=== PATIENT | male | born 1955 | race Caucasian/White ===

== ENCOUNTER 2016-12-21 06:26 | Inpatient (IN) | payer BC ==
--- NOTE | 2016-11-16 11:26 | PAT Medication Instructions ---
Service Date Nov 16, 2016. Current Home Medication List Aspirin (Aspirin Ec), 81 MG PO QAM Oxycodone/Acetaminophen 5MG/325MG (Percocet 5MG/325MG), 1 TABLET PO TID PRN for RN Simvastatin (Zocor), 80 MG PO QAM [Lisinopril Hctz], 1 TAB PO QAM Medication Instructions For Your Scheduled Surgery - Hold the following medications the morning of surgery: [Lisinopril Hctz], 1 TAB PO QAM - Take the following medications the morning of surgery with a sip of water OTHERWISE NOTHING TO EAT OR DRINK AFTER MIDNIGHT: Simvastatin (Zocor), 80 MG PO QAM Aspirin (Aspirin Ec), 81 MG PO QAM Oxycodone/Acetaminophen 5MG/325MG (Percocet 5MG/325MG), 1 TABLET PO TID PRN ( may take if needed up to 4 hours prior to surgery) If you have any questions please call us at [phone] or [phone] or [phone]
--- NOTE | 2016-11-16 11:57 | DIAGNOSTIC IMAGING REPORT ---
CHEST PREADMISSION(PA/LAT) CLINICAL HISTORY: 61 years-old Male presenting with preadmission chest x-ray. TECHNIQUE: PA and lateral views of the chest were obtained. COMPARISON: None. FINDINGS: Cardiomediastinal silhouette normal. Lungs and pleural spaces clear. Multiple old left lateral rib fractures. Upper abdomen normal. IMPRESSION: 1. No acute cardiopulmonary disease. Electronically signed by: Shailesh Cosme M.D. 11/16/2016 11:56 AM Dictated Date/Time: 11/16/2016 11:55 AM
[2016-11-16 12:00] LABS: URINE APPEARANCE CLEAR (CLEAR); URINE BILIRUBIN NEG (NEG); URINE COLOR YELLOW; URINE EPITHELIAL CELL AUTO 0-5 /lpf (0-5); URINE NITRITE NEG (NEG); URINE SPECIFIC GRAVITY 1.019 (1.000-1.030); UROBILINOGEN NEG (NEG)
[2016-11-16 12:13] LABS: INR 0.9 (0.9-1.1); PARTIAL THROMBOPLASTIN RATIO 0.9
[2016-11-16 12:15] LABS: BASO % 0.3 %; BASO ABS # 0.02 K/uL (0-0.2); COMPLETE YES; HEMATOCRIT 44.3 % (42-52); IG% 0.2 %; LYMPH % 32.1 %; LYMPH ABS # 1.89 K/uL (1.2-3.4); MEAN CELL VOLUME 95.3 fL (80-100); MEAN CORPUSCULAR HEMOGLOBIN 31.4 pg (25-34); MEAN PLATELET VOLUME 9.5 fL (7.4-10.4); MONO % 8.1 %; NEUT % 57.3 %; PLATELET COUNT 231 K/uL (130-400); RED BLOOD COUNT 4.65 M/uL (4.7-6.1); WHITE BLOOD COUNT 5.89 K/uL (4.8-10.8)
[2016-11-16 12:18] LABS: MANUAL MICROSCOPIC REQUIRED? NO; REVIEW REQ? NO
[2016-11-16 12:28] LABS: ESTIMATED AVERAGE GLUCOSE 126 mg/dl; HA1C FLAG Normal (Normal)
--- NOTE | 2016-12-20 10:05 | HISTORY & PHYSICAL EXAMINATION ---
DATE OF ADMISSION: 12/21/2016 CHIEF COMPLAINT: Right hip pain. HISTORY OF PRESENT ILLNESS: The patient is a 61-year-old gentleman with known progressive osteoarthritis about his right hip. He is having progressive pain and disability due to ongoing disease. He has pain with prolonged weightbearing and standing activities. He has difficulty with any kneeling, bending, or squatting activities. Due to ongoing pain and disability, he now desires to proceed with right total hip arthroplasty. PAST MEDICAL HISTORY: Hypertension, hypercholesterolemia, and diverticulitis. PAST SURGICAL HISTORY: None. MEDICATIONS: Lisinopril/hydrochlorothiazide 10/12.5 one tablet daily, Zocor 80 mg daily, aspirin 81 mg daily, and Percocet p.r.n. pain. ALLERGIES: No known drug allergies. SOCIAL HISTORY: He uses smokeless tobacco and drinks a few beers a week. REVIEW OF SYSTEMS: Noncontributory. PHYSICAL EXAMINATION: GENERAL: Well-nourished and well-developed elderly male, who appears his stated age. HEENT: Normocephalic and atraumatic. Extraocular movements intact. Oropharynx pink and moist. NECK: Supple without adenopathy. LUNGS: Clear to auscultation bilaterally. HEART: Regular rate and rhythm. ABDOMEN: Soft, nontender, and nondistended. EXTREMITIES: The upper extremities are within normal limits. The right hip demonstrates limited active and passive range of motion. There is severe limitation of internal and external rotation. X-RAYS: X-rays were reviewed. He has severe osteoarthritis about the right hip with complete loss of the joint space. There is deformation of the femoral head. There are large cystic changes about the femoral head and acetabulum. ASSESSMENT: Right hip degenerative joint disease. PLAN: Risks versus benefits were discussed. Consent was obtained. The patient's primary care physician is Dr. Mercedes Plascencia. We will proceed with right total hip arthroplasty upon preoperative workup and medical clearance.
[~2016-12-21] VITALS: Ht 172.7 cm; Wt 91.4 kg
[2016-12-21] VITALS (9 sets, daily range): BP systolic 108–156; BP diastolic 67–92; PULSE 70–85; TEMP 36.4–36.9; O2SAT 95–100; Ht 172.7 cm; Wt 91.4 kg
[2016-12-21] MEDS: CEFAZOLIN 2000 MG/60 ML D5W 60 ML IV SCH ×2 (06:00→07:12)
[~2016-12-21 06:26] MED LIST: ACETAMINOPHEN 500 MG TAB PO SCH; ASPI81TA28 PO; DEXAMETHASONE 4 MG TAB PO SCH; FAMOTIDINE 20 MG TAB PO SCH; GABAPENTIN 300 MG CAP PO SCH; LACTATED RINGER'S 1000ML 1,000 ML IV SCH; LACTATED RINGER'S 1000ML 500 ML IV ONE; LISINOPRIL HCTZ PO; METOCLOPRAMIDE HCL 10 MG TAB PO SCH; OXYC-57 PO; SIMV80TA2 PO
[2016-12-21] MEDS: TRANEXAMIC ACID INJ 1,000 MG in SODIUM CHLORIDE 0.9% 100ML 100 ML IV SCH ×2 (06:30→08:47)
[2016-12-21] MEDS ORDERED: BUPIVACAINE 0.5 % 5 MG/1 ML PF 10ML VIAL ONE (06:34)
--- NOTE | 2016-12-21 06:53 | History & Physical Bridge Note ---
H&P Re-Evaluation Bridge Note: I have examined the patient, reviewed the History & Physical and in the interval since the performance of the History & Physical I have noted the following changes of clinical significance: No changes noted
[2016-12-21] MEDS: CeleBREX 200 MG CAP PO SCH ×2 (07:12→07:17)
[2016-12-21] MEDS ORDERED: MIDAZOLAM HCL 1 MG/ML 2ML VIAL ONE ×2 (08:04→08:10)
[2016-12-21] MEDS ORDERED: FENTANYL CITRATE INJ 50 MCG/1 ML 2 ML VIAL ONE (08:09)
[2016-12-21] MEDS ORDERED: POVIDONE-IODINE OP SOLN 30 ML BTL ONE (08:44)
[2016-12-21] MEDS ORDERED: BACITRACIN 50000 UNIT VIAL ONE (08:44)
[2016-12-21] MEDS ORDERED: ORTHO JOINT ANESTHETIC ONE (09:26)
[2016-12-21] MEDS ORDERED: PROPOFOL IV EMULSION 10 MG/ML 20 ML VIAL IV ONE (10:00)
[2016-12-21] MEDS ORDERED: ROPIVACAINE 5MG/ML 30 ML 150 MG, BUPIVACAINE/EPINEPHR 0.5% MPF 30 ML, KETOROLAC TROMETH... INFIL SCH ×7 (10:00)
[2016-12-21] MEDS ORDERED: LIDOCAINE HCL 2% 2 ML VIAL (20MG/ML) ONE (10:00)
[2016-12-21] MEDS ORDERED: EpHEDrine SULFATE 50MG/5ML SYR ONE (10:14)
--- NOTE | 2016-12-21 10:24 | [facility] Post Operative Brief Note ---
Immediate Operative Summary Operative Date Dec 21, 2016. Pre-Operative Diagnosis Right hip degenerative joint disease Post-Operative Diagnosis Right hip degenerative joint disease Procedure(s) Performed Right total hip arthroplasty Surgeon Dr. Santa Commercial Maintenance Technician Surgeon(s) Jason Mak PA-C Estimated Blood Loss 100cc Findings Severe OA with acetabular cysts Specimens A. Right femoral head Complication(s) None Disposition Recovery Room / PACU
[2016-12-21] MEDS ORDERED: BISACODYL 10 MG SUPP PR PRN (10:30)
[2016-12-21] MEDS ORDERED: MoRPHine SULFATE 2 MG/ML CARP IV PRN (10:30)
[2016-12-21] MEDS ORDERED: SOD PHOSPHATE/SOD BIPHOSPHATE ENEMA 132 ML BTL PR PRN (10:30)
[2016-12-21] MEDS ORDERED: ZOLPIDEM TARTRATE 5 MG TAB PO PRN (10:30)
[2016-12-21] MEDS ORDERED: MAGNESIUM HYDROXIDE SUSP 30 ML UDC PO PRN (10:30)
[2016-12-21] MEDS ORDERED: TAMSULOSIN HCL 0.4 MG CAP PO PRN (10:30)
[2016-12-21] MEDS ORDERED: METOCLOPRAMIDE HCL INJ 5 MG/ML 2 ML VIAL IV PRN (10:30)
[2016-12-21] MEDS ORDERED: ALUMINUM/MAGNESIUM/SIMETH (MAALOX MAX) 30 ML UDC PO PRN (10:30)
[2016-12-21] MEDS ORDERED: ONDANSETRON INJ 2 MG/ML 2 ML VIAL IV PRN ×2 (10:30→11:30)
--- NOTE | 2016-12-21 10:47 | OPERATIVE REPORT ---
DATE OF OPERATION: 12/21/2016 PREOPERATIVE DIAGNOSIS: Osteoarthritis, right hip. POSTOPERATIVE DIAGNOSIS: Osteoarthritis, right hip. PROCEDURE: Right connective total hip arthroplasty. SURGEON: Dr. Santa. BREAKFAST AND ROOM ATTENDANT: Jason Mak PA-C. ANESTHESIA: Spinal. COMPLICATIONS: None. IMPLANT USED: Acetabular reamer used 52, acetabular shell 52, stem #4 and head -5 x 36 mm ceramic. PROCEDURE: Following induction of adequate spinal anesthesia, the patient was placed in left lateral decubitus position and right Jennifer-Langenbeck incision was made. Subcutaneous tissue was sharply dissected. Electrocautery used for hemostasis. The fascia was incised throughout the length of the wound and a weinstein scissor placed beneath the short external rotators. The pyriformis was tagged with #1 Vicryl. The short external rotators were divided from the posterior aspect of the femur using electrocautery. These were swept posteriorly. A T-capsulotomy incision was made and the hip was dislocated using a combination of flexion, adduction, and internal rotation. Exposure of the femoral neck with old-style Hohmann and a blunt Hohmann was carried out and a femoral rasp was utilized as a guide for making the appropriate level femoral neck cut. This bone fragment was removed and reserved on the back table. Next, attention was turned to the acetabulum where bone hook was used to retract the femur while the offset retractors were placed anterior and posteriorly. A double-angled Hohmann was placed in superior and anterior position exposing the acetabulum nicely. Acetabular labrum as well as posterior capsule elements were removed using a long knife and a long pickup. Fovea centralis was cleared of all soft tissue. Sequential reamings were carried up to a 52 and decision was made to proceed with impaction of a 52 trabecular metal cup. This was impacted and held using a single 35 mm bone screw. The acetabular liner was placed with 15 of elevated posterior wall in the superior and posterior position. Next, attention was turned to the femoral portion of the case where a Bovie and pickup was used to further clear short external rotators from their insertion on the femur. Box osteotome was used to gain access to the femoral canal and the T-handled rasp and a rattail rasp were used to further open and lateral the canal. Sequentially raspings were carried up to a 4 which gave good fit and fill of the proximal femur. A trial reduction was carried out and std offset femoral neck component was chosen as the size to be used. A -5 x 36 mm femoral head was impacted into position, +0 head was utilized. The trial reduction was stable in all degrees of rotation with no [id number] impingement. The hip was dislocated. The trial components were removed and the final femoral stem, neck, and femoral head combination were assembled on the back table and impacted into position. Hip was relocated. Range of motion checked once again successful and the wound was irrigated. The pyriformis repaired to the greater trochanter using #1 Vicryl [id number] suture. A Hemovac drain was placed and the fascia was closed using #1 Vicryl, subcutaneous tissue was closed using 0 Dexon, and skin was closed with jabari. Sterile dressing of Adaptic, 4 x 4's, ABDs, and foam tape was applied. The patient tolerated the procedure well. Due to the complex nature of the procedure, the entire surgery was performed with the operational assistance of Jason Mak PA-C. The office manager executive assistant, under direct supervision, was involved in the actual performance of all aspects of the surgical procedure including hemostasis, tissue retraction and incision, instrument management, patient positioning, and wound closure. ADDENDUM There were cysts noted in the subchondral bone and weightbearing dome of the acetabulum. These were curetted free of soft tissue and packed with bone graft from the last reamings. I attest to the content of the Intraoperative Record and any orders documented therein. Any exceptions are noted below. JACOBO
--- NOTE | 2016-12-21 11:27 | DIAGNOSTIC IMAGING REPORT ---
AP PELVIS AND RIGHT HIP 2 VIEWS CLINICAL HISTORY: Postop study COMPARISON STUDY: No previous studies for comparison. FINDINGS: There are postsurgical changes of a total right hip arthroplasty. The acetabular and femoral components appear well seated. There is no dislocation. There are no acute fractures. There are overlying surgical drains. On the left, there is calcification located superior to the greater trochanter and inferolateral to the acetabulum. IMPRESSION: Postsurgical changes of a total right hip arthroplasty. Electronically signed by: Augustin Sandoval M.D. 12/21/2016 11:26 AM Dictated Date/Time: 12/21/2016 11:25 AM
--- NOTE | 2016-12-21 11:29 | Anesthesiology Progress Note ---
Anesthesia Post Op Note Date & Time Dec 21, 2016 at 11:29 Vital Signs Pain Intensity: 0 Vital Signs Past 12 Hours Date Time Temp Pulse Resp B/P (MAP) Pulse Ox O2 Delivery O2 Flow Rate FiO2 12/21/16 11:20 88 20 109/72 99 Oxymask 5 12/21/16 11:10 90 20 116/84 98 Oxymask 5 12/21/16 11:00 36.0 82 20 116/74 98 Oxymask 10 12/21/16 06:55 36.9 81 20 136/92 97 Room Air Notes Mental Status: alert / awake / arousable, participated in evaluation Pt Amnestic to Procedure: Yes Nausea / Vomiting: adequately controlled Pain: adequately controlled Airway Patency, RR, SpO2: stable & adequate BP & HR: stable & adequate Hydration State: stable & adequate Anesthetic Complications: no major complications apparent
[2016-12-21] MEDS ORDERED: ATROPINE SULFATE 0.1 MG/ML 5ML SYR IV PRN (11:30)
[2016-12-21] MEDS ORDERED: HYDROmorphone INJ 2 MG/ML SYR/VIAL IV PRN (11:30)
[2016-12-21] MEDS ORDERED: PHENYLEPHRINE 100MCG/ML 5ML SYR IV PRN (11:30)
[2016-12-21] MEDS ORDERED: EpHEDrine SULFATE INJ 50 MG/ML AMP IV PRN (11:30)
[2016-12-21] MEDS: D5W AND 1/2NSS + 20MEQ KCL 1,000 ML IV SCH ×2 (12:49→21:48)
[2016-12-21] MEDS: FERROUS GLUCONATE 324 MG TAB PO SCH ×2 (12:50→17:42)
[2016-12-21] MEDS: OXYCODONE HCL IR 5 MG TAB (IMMEDIATE RELEASE) PO PRN ×3 (12:56→18:57)
[2016-12-21] MEDS: KETOROLAC TROMETHAMINE 30 MG/ML VIAL IV. SCH ×2 (15:36→21:47)
[2016-12-21] MEDS ORDERED: TRANEXAMIC ACID INJ 1,000 MG in SODIUM CHLORIDE 0.9% 100ML 100 ML IV ONE (16:00)
[2016-12-21] MEDS: ACETAMINOPHEN IV 1,000 MG in EMPTY BAG 0 ML IV SCH (18:34)
[2016-12-21] MEDS: CEFAZOLIN IV 1,000 MG in DEXTROSE 5% 50ML 50 ML IV SCH (18:57)
[2016-12-21] MEDS: ASPIRIN 81 MG ECTAB PO SCH (20:55)
[2016-12-21] MEDS: DOCUSATE SODIUM 100 MG CAP PO SCH (20:56)
[2016-12-21] MEDS ORDERED: SENNA 8.6 MG TAB PO SCH (21:00)
[2016-12-21] MEDS ORDERED: CeleBREX 200 MG CAP PO SCH (21:00)
[2016-12-22] MEDS: CEFAZOLIN IV 1,000 MG in DEXTROSE 5% 50ML 50 ML IV SCH (02:03)
[2016-12-22] MEDS: ACETAMINOPHEN IV 1,000 MG in EMPTY BAG 0 ML IV SCH ×2 (02:43→10:25)
[2016-12-22] MEDS: KETOROLAC TROMETHAMINE 30 MG/ML VIAL IV. SCH ×2 (03:37→10:25)
[2016-12-22 03:53] VITALS: BP 104/65; PULSE 63; TEMP 36.6; O2SAT 93
[2016-12-22 05:50] LABS: BASO % 0.1 %; BASO ABS # 0.01 K/uL (0-0.2); COMPLETE YES; EOS % 0.2 %; HEMATOCRIT 33.1 % (42-52); IG% 0.4 %; LYMPH % 11.8 %; LYMPH ABS # 1.43 K/uL (1.2-3.4); MEAN CELL VOLUME 94.6 fL (80-100); MEAN CORPUSCULAR HEMOGLOBIN 32.6 pg (25-34); MEAN CORPUSCULAR HGB CONC 34.4 g/dl (32-36); MEAN PLATELET VOLUME 9.8 fL (7.4-10.4); MONO % 11.9 %; NEUT % 75.6 %; PLATELET COUNT 172 K/uL (130-400); WHITE BLOOD COUNT 12.14 K/uL (4.8-10.8)
[2016-12-22 06:53] VITALS: BP 117/72; PULSE 67; TEMP 36.6; O2SAT 96
[2016-12-22] MEDS: D5W AND 1/2NSS + 20MEQ KCL 1,000 ML IV SCH (07:21)
[2016-12-22] MEDS: OXYCODONE HCL IR 5 MG TAB (IMMEDIATE RELEASE) PO PRN ×4 (07:28→15:37)
--- NOTE | 2016-12-22 07:41 | Orthopedic Progress Note ---
Orthopedic Progress Note Date of Service Dec 22, 2016. Subjective Post OP Day: 1 Reports: feeling well Objective calves soft nontender, N/V intact, dressing C/D/I (Hemovac d/c'd), toes mobile Date Time Temp Pulse Resp B/P (MAP) Pulse Ox O2 Delivery O2 Flow Rate FiO2 12/22/16 06:53 36.6 67 16 117/72 (87) 96 Room Air 12/22/16 03:53 36.6 63 16 104/65 (78) 93 Room Air 12/21/16 23:45 Room Air 12/21/16 23:10 36.7 70 16 122/70 (87) 98 Room Air 12/21/16 19:14 36.9 85 18 108/67 (81) 96 Room Air 12/21/16 17:32 98 Room Air 12/21/16 15:30 Nasal Cannula 2.0 12/21/16 15:12 36.7 80 17 147/82 (103) 98 Nasal Cannula 3.0 12/21/16 14:00 80 19 156/83 (107) 95 Nasal Cannula 3.0 12/21/16 13:03 77 17 131/78 (95) 98 Nasal Cannula 3.0 12/21/16 12:31 36.4 82 18 137/83 (101) 100 Nasal Cannula 2.0 12/21/16 12:00 36.9 76 16 116/70 (85) 98 Nasal Cannula 3.0 12/21/16 12:00 98 Nasal Cannula 3.0 12/21/16 12:00 98 Nasal Cannula 3.0 12/21/16 11:50 75 20 113/87 98 Nasal Cannula 2 12/21/16 11:40 36.2 74 20 101/78 98 Nasal Cannula 2 12/21/16 11:30 74 20 119/73 98 Nasal Cannula 2 12/21/16 11:20 88 20 109/72 99 Oxymask 5 12/21/16 11:10 90 20 116/84 98 Oxymask 5 12/21/16 11:00 36.0 82 20 116/74 98 Oxymask 10 Laboratory Results 24 Hours: Test 12/22/16 05:15 White Blood Count 12.14 K/uL Red Blood Count 3.50 M/uL Hemoglobin 11.4 g/dL Hematocrit 33.1 % Mean Corpuscular Volume 94.6 fL Mean Corpuscular Hemoglobin 32.6 pg Mean Corpuscular Hemoglobin Concent 34.4 g/dl Platelet Count 172 K/uL Mean Platelet Volume 9.8 fL Neutrophils (%) (Auto) 75.6 % Lymphocytes (%) (Auto) 11.8 % Monocytes (%) (Auto) 11.9 % Eosinophils (%) (Auto) 0.2 % Basophils (%) (Auto) 0.1 % Neutrophils # (Auto) 9.18 K/uL Lymphocytes # (Auto) 1.43 K/uL Monocytes # (Auto) 1.45 K/uL Eosinophils # (Auto) 0.02 K/uL Basophils # (Auto) 0.01 K/uL Assessment & Plan Assessment: 61 yo male stable POD #1 s/p right KASANDRA Plan: 1. Med management 2. DVT prophylaxis- ASA, SCDs 3. PT/OT 4. D/C planning- home w/ HH
[2016-12-22] MEDS ORDERED: CLB200 PO (07:45)
[2016-12-22] MEDS ORDERED: ACET-24 PO (07:45)
[2016-12-22] MEDS ORDERED: RXC5 PO (07:45)
[2016-12-22] MEDS ORDERED: ASPEC81 PO (07:45)
--- NOTE | 2016-12-22 07:47 | Discharge Instructions ---
Discharge Instructions Date of Service Dec 22, 2016. Admission Reason for Admission: Right Hip Osteoarthritis Discharge Discharge Diagnosis / Problem: Right hip arthritis Discharge Goals Goal(s): Decrease discomfort, Improve function Activity Recommendations Activity Limitations: as noted below Weightbearing Status: Right weightbearing (as tolerated) . Instructions / Follow-Up Instructions / Follow-Up ACTIVITY RECOMMENDATIONS: SELF CARE INSTRUCTIONS AFTER TOTAL HIP REPLACEMENT Until the incision and soft tissues around your hip have healed, there is a possibility that the hip prosthesis could dislocate. A. Observe the following precautions to prevent dislocation: 1. Don't bend your hip greater than 90 degrees. 2. Avoid crossing your legs or ankles while standing or lying. 3. Sit with your feet placed 6 inches apart. 4. When sitting, keep your knees below your hips. Sit on a firm surface, avoid deep, soft chairs and couches. Use an elevated toilet seat in the bathroom. 5. Don't bend over at the waist. Use a long handled shoehorn and a sock aid to help you put on your shoes and socks. A stationary engineer can help you pickler helper objects that are too high or too low to reach. 6. Keep car riding to a minimum for at least one month after surgery. B. Your balance may be shaky for a while. Use crutches or a walker until directed by your doctor. C. Use hand rails when walking on stairs. D. Wear low heeled shoes with non-slip soles. E. Be sure that your floors are free of things that could trip you - throw rugs , electrical cords, small objects. Avoid wet and waxed floors, especially with crutches and canes. F. Try to walk several times a day with rest periods between. G. Continue with all the exercises taught to you in the hospital. Again, make walking a part of your daily routine. SPECIAL CARE INSTRUCTIONS: VERY IMPORTANT TO READ AND REVIEW A. You may still be at risk for phlebitis and blood clots. 1. Wear surgical stockings (BECKY hose) for 2 weeks after surgery to improve circulation and reduce swelling. 2. Take Aspirin 81mg twice daily for 4 weeks or as directed by your doctor. This is your blood thinner. 3. High risk patients may be prescribed a stronger blood thinner if necessary. 4. If you are on Coumadin normally, your family doctor/relationship management lead should monitor your blood work. Expect a phone call the day of or the day after bloodwork is drawn to adjust your dosage. B. You must take antibiotics before having dental work, bladder, bowel and other surgery. Your doctor will provide you with a permanent card to carry describing precautions. C. Call [facility] if you have a fever, redness or swelling around the incision, cloudy drainage from incision, or sudden increase in pain in your hip, not relieved by your regular pain medication. D. Please call the office at if you have any concerns or questions about your operation or recovery. * YOU MAY SHOWER, NO TUB BATHS UNTIL CLEARED BY YOUR DOCTOR. * WEAR BECKY HOSE 20 HOURS PER DAY FOR 2 WEEKS. * YOU SHOULD USE A WALKER OR CRUTCHES FOR 2-4 WEEKS. THIS WILL HELP PREVENT STRAIN ON YOUR HIP MUSCLE AND ALLOW IT TO HEAL PROPERLY. YOU MAY WEAN TO A CANE TOLERATED. * MOST PATIENTS WILL HAVE HOME NURSING FOR THERAPY. IF YOU DECIDE TO DO OUTPATIENT PHYSICAL THERAPY, PLEASE SCHEDULE THIS 3 TIMES PER WEEK. Silverlon- This is a large adhesive bandage that contains silver ions. This helps your incision heal by fighting off bacteria and protecting it from the outside environment. You are permitted to shower with this dressing. This will remain on your incision for 7 days and then should be removed. Some visible blood or drainage through the dressing window is normal. If there is significant drainage or leaking noted before the 7 days notify your doctor's office immediately. Once removed, keep incision clean and dry. If there is any drainage or redness noted, please call your surgeon. FOLLOW UP VISIT: If appointment is not already scheduled: Please call [facility] to make a follow-up appointment for 2 weeks after your surgery at . Current Hospital Diet Patient's current hospital diet: Regular Diet Discharge Diet Recommended Diet: Regular Diet Procedures Procedures Performed: Right total hip arthroplasty Pending Studies Studies pending at discharge: no Laboratory Results Hemoglobin A1c Test 11/16/16 11:35 Range/Units Estimated Average Glucose 126 mg/dl Hemoglobin A1c 6.0 H 4.5-5.6 % Medical Emergencies . Who to Call and When: Medical Emergencies: If at any time you feel your situation is an emergency, please call 911 immediately. . Non-Emergent Contact Non-Emergency issues call your: Surgeon Call Non-Emergent contact if: temperature is above 101.5, your pain is not controlled, wound has increased drainage, wound has increased redness . "Provider Documentation" section prepared by Jason Mak PA-C. . VTE Core Measure Inpt VTE Proph given/why not?: Other Anticoagulation (ASA 81mg bid), T.E.D. Stockings, SCD's [place] Drug Monitoring Program Search Results: patient reviewed within database, no issues identified
[2016-12-22] MEDS: ASPIRIN 81 MG ECTAB PO SCH (08:46)
[2016-12-22] MEDS: DOCUSATE SODIUM 100 MG CAP PO SCH (08:46)
[2016-12-22] MEDS: FERROUS GLUCONATE 324 MG TAB PO SCH ×2 (08:47→12:43)
[2016-12-22] MEDS ORDERED: LISINOPRIL/HCTZ 10/12.5MG TAB PO SCH (09:00)
[2016-12-22] MEDS ORDERED: MULTIVITAMIN TAB PO SCH (09:00)
[2016-12-22] MEDS ORDERED: SIMVASTATIN 80 MG TAB PO SCH (09:00)
[2016-12-22 09:43] LABS: BUN/CREATININE RATIO 18.7 (10-20); CALCIUM 8.2 mg/dl (8.5-10.1); CREATININE 0.93 mg/dl (0.60-1.40); POTASSIUM 4.4 mmol/L (3.5-5.1)
--- NOTE | 2016-12-22 10:00 | Anesthesiology Progress Note ---
Anesthesia Post Op Note Date & Time Dec 22, 2016 at 10:00 Vital Signs Pain Intensity: 3.0 Vital Signs Past 12 Hours Date Time Temp Pulse Resp B/P (MAP) Pulse Ox O2 Delivery O2 Flow Rate FiO2 12/22/16 07:25 Room Air 12/22/16 06:53 36.6 67 16 117/72 (87) 96 Room Air 12/22/16 03:53 36.6 63 16 104/65 (78) 93 Room Air 12/21/16 23:45 Room Air 12/21/16 23:10 36.7 70 16 122/70 (87) 98 Room Air Notes Mental Status: alert / awake / arousable, participated in evaluation Pt Amnestic to Procedure: Yes Nausea / Vomiting: adequately controlled Pain: adequately controlled Airway Patency, RR, SpO2: stable & adequate BP & HR: stable & adequate Hydration State: stable & adequate Neuraxial Anesthesia: was administered, sensory block resolved Anesthetic Complications: no major complications apparent
[2016-12-22 15:01] VITALS: BP 134/66; PULSE 69; TEMP 36.6; O2SAT 98
[2016-12-22 16:53] VITALS: BP 134/66; PULSE 69; TEMP 36.6; O2SAT 98
[2016-12-22] MEDS ORDERED: CeleBREX 200 MG CAP PO SCH (20:00)
--- NOTE | 2017-01-05 09:42 | DISCHARGE SUMMARY ---
CHIEF COMPLAINT: Right hip pain. Please see complete history and physical examination. HOSPITAL COURSE: The patient underwent right total hip arthroplasty without complication. He tolerated the procedure well and was discharged to recovery room in stable condition. His postoperative course was relatively uneventful. His postoperative pain was reasonably well controlled with a combination of spinal anesthesia, intraoperative joint injection, IV, and oral pain medications. He was started on aspirin for DVT prophylaxis. He also utilized BECKY stockings and SCDs for additional prophylaxis. His H&H was stable and did not require transfusion. Surgical drain was discontinued on postoperative day 1, surgical dressing will remain in place for approximately 7 days postoperative. He tolerated postoperative physical therapy reasonably well as he was ambulating and transferring appropriately. He was discharged home on postoperative day 1. He will continue his physical therapy at home. He will continue his aspirin for DVT prophylaxis and follow up in our office in approximately 10-14 days for his initial postop evaluation.
== END 2016-12-22 17:20 | disposition home health service (06) | DRG 470 ==
LOC: C.ACU 06:26 → C.3E 10:35 → ENRESERV 11:40
PROC: 0SR90JA Replacement of Right Hip Joint with Synthetic Substitute, Uncemented, Open Approach (ICD-10-PCS; principal; 2016-12-21 09:00)
DX: M16.11 Unilateral primary osteoarthritis, right hip (principal); I10 Essential (primary) hypertension; E78.00 Pure hypercholesterolemia, unspecified; M85.651 Other cyst of bone, right thigh; Z79.899 Other long term (current) drug therapy; F17.220 Nicotine dependence, chewing tobacco, uncomplicated